=== PATIENT | male | born 1965 | race Hispanic/Latino ===

== ENCOUNTER 2018-08-19 22:44 | Emergency (ER) | payer MEDICARE ==
[2018-08-19 22:44] VITALS: BMI 32.1
[2018-08-19 23:01] VITALS: PULSE 98; RESP 18; TEMP 98.1; O2SAT 99
--- NOTE | 2018-08-19 23:16 | C.PDOC ---
History Of Present Illness 52 yr old male w/ hx of substance abuse per charting p/w detox request. Per RN notes pt eloped. Did not see provider. Time Seen by Provider: 08/19/18 23:16 Chief Complaint (Nursing): Substance Abuse Past Medical History Vital Signs: Last Vital Signs Temp 98.1 F 08/19/18 22:58 Pulse 98 H 08/19/18 22:58 Resp 18 08/19/18 22:58 BP Pulse Ox 99 08/20/18 02:02 - Medical History PMH: Anxiety, Arthritis, Bipolar Disorder, Depression, Diabetes, Emphysema, Fractures (ankle), HTN, Hypercholesterolemia, Peripheral Edema Denies: Hepatitis, HIV, Chronic Kidney Disease, Seizures, Sexually Transmitted Disease Surgical History: Appendectomy Denies: Pacemaker - [facility] Procedures APPLICATION OF SPLINT (11/07/13) BONE MARROW BIOPSY (02/14/13) CENTRAL VENOUS CATHETER PLACEMENT WITH GUIDANCE (02/15/13) DRAINAGE OF R FOOT SUBCU/FASCIA, OPEN APPROACH (03/15/17) DX ULTRASOUND-HEAD/NECK (06/04/13) EXCIS DEBRIDE OF WOUND, INFECT, OR BURN (04/22/15) EXCISION OF RIGHT TARSAL, OPEN APPROACH, DIAGNOSTIC (03/15/17) HEMODIALYSIS (06/04/13) IMMOBILIZ/WOUND ATTN NEC (09/19/02) INFLUENZA VACCINATION (11/07/13) INJEC/INFUS OF OXAZOLIDINONE CLASS ANTIBIOTICS (04/22/15) INJECT ANTIBIOTIC (07/17/05) INJECT/INFUSE NEC (12/15/04) INSERTION OF INFUSION DEV INTO SUP VENA CAVA, PERC APPROACH (03/15/17) INTRODUCTION OF SERUM/TOX/VACCINE INTO MUSCLE, PERC APPROACH (11/20/17) MEDICATION MANAGEMENT (05/08/17) NAIL REMOVAL (01/19/15) NEBULIZER THERAPY (02/12/13) OTHER SKIN & SUBQ I D (04/22/15) PARTIAL OSTECTOMY NEC (01/19/15) PSYCHIAT DRUG THERAP NEC (06/17/15) TETANUS TOXOID ADMINIST (07/17/05) TRANSFUSE NONAUT PLATELETS IN PERIPH VEIN, PERC (03/15/17) ULTRASONOGRAPHY OF SUPERIOR VENA CAVA, GUIDANCE (03/15/17) VENOUS CATHETERIZATION FOR RENAL DIALYSIS (07/09/13) Family History: States: Unknown Family Hx - Social History Hx Tobacco Use: No Hx Alcohol Use: Yes (ALCOHOLISM/ABUSE- LAST DRINK 1 YR AGO- LAST REHAB 03/2017 ) Hx Substance Use: No - Immunization History Hx Tetanus Toxoid Vaccination: Yes Hx Influenza Vaccination: Yes Hx Pneumococcal Vaccination: Yes ED Course And Treatment O2 Sat by Pulse Oximetry: 99 Disposition - Disposition Referrals: Non CP Provider, [Primary Care Provider] - Disposition: LEFT W/O BEING SEEN - ER ONLY Disposition Time: 23:19 Condition: UNKNOWN Forms: [employer] [facility] ([place]) - Clinical Impression Clinical Impression: Substance abuse
== END 2018-08-19 23:19 | disposition left against medical advice (07) ==
LOC: SUPCPDRO 22:44 → C.ER 22:44
DX: Z02.89 Encounter for other administrative examinations (principal); F19.10 Other psychoactive substance abuse, uncomplicated